=== PATIENT | female | born 1940 | race Caucasian/White ===

== ENCOUNTER 2016-07-22 10:33 | Day surgery (SDC) | payer MEDICARE, OTHER ==
[~2016-07-22] VITALS: Ht 157.5 cm; Wt 64.9 kg
--- NOTE | ~2016-07-22 | OR ---
PATIENT'S NAME: [facility] AGE: 76 Y [address] ROOM: [place] [id number] LOCATION: [facility] [place] ADMIT DATE: 07/22/2016 OR/Procedure Report DISCHARGE DATE: FAMILY PHYSICIAN: Fabiana Berumen APRN ATTENDING PHYSICIAN: Mamie Berg SURGEON: Mamie Berg MD STEWARD/STEWARDESS DECK: DATE OF PROCEDURE: 07/22/2016 PREOPERATIVE DIAGNOSIS: Stress urinary incontinence. POSTOPERATIVE DIAGNOSIS: Stress urinary incontinence. PROCEDURE PERFORMED: I-Stop sling. ANESTHESIA: General. COMPLICATIONS: None. ESTIMATED BLOOD LOSS: 50 mL. INDICATION FOR PROCEDURE: The patient is a 76-year-old female complaining of stress urinary incontinence. The patient is status post bladder suspension approximately 10 years ago. DESCRIPTION OF PROCEDURE: After informed consent was obtained, the patient was taken to the operating room. A general anesthetic was applied, and she was placed in dorsal lithotomy position. The lower abdomen and groin area were prepped and draped in the normal sterile fashion. A 20-Macedonian Madden catheter was placed. Two small skin incisions were made over the pubic bones bilaterally. Next, vasopressin was injected into the anterior vaginal wall to create an avascular plane. A T-incision was then made in the anterior vaginal wall along the course of the urethra to the bladder neck. I then developed a space into the endopelvic fascia bilaterally using sharp and blunt dissection. Next, the I-Stop needles were passed through the abdominal incision, through the endopelvic fascia, and out the anterior vaginal wall bilaterally. Cystoscopy was performed. This revealed that the needles had not penetrated the bladder and were away from the mucosa. The tape was attached to the end of each needle and pulled through. The mesh was placed at the bladder neck, and then I pulled out with the cystoscope and placed at a 45-degree angle, and the mesh was cut at the surface. The wounds were sealed with Steri-Strips. Following this, the Madden catheter was replaced. The anterior vaginal wall was closed with a running interlocking 2-0 Vicryl suture. The vagina was then packed with Silvadene-soaked gauze. The patient tolerated the procedure well and was transferred to the recovery room in good condition. PATIENT'S NAME: [facility] AGE: 76 Y [address] ROOM: [address] [address] LOCATION: [facility] [place] ADMIT DATE: 07/22/2016 OR/Procedure Report DISCHARGE DATE: FAMILY PHYSICIAN: Fabiana Berumen APRN ATTENDING PHYSICIAN: Mamie Berg MD JAD OLVERA/aichal /[id number] CC: Fabiana Berumen APRN d: 07/23/16 1503 t: 07/25/16 0951, OPERATIVE SUMMARY
[~2016-07-22 10:33] MED LIST: ASPIRIN EC81 MG PO; B COMPLEX1 EACH PO; FISH OIL 1,0001 EACH PO; LIPITOR80 MG PO; LOPRESSOR25 MG PO; PLAVIX75 MG PO; PRINIVIL (ZESTRI5 MG PO; VITAMIN D1000 UNIT PO
[2016-07-22 11:12] LABS: BASOPHIL # 0.1 K/uL (0.0-0.2); BASOPHIL % 0.7 %; EOSINOPHIL # 0.1 K/uL (0.0-0.5); EOSINOPHIL % 1.3 %; HEMATOCRIT 42.7 % (33.0-46.0); IMMATURE GRANULOCYTE % 0.3 %; LYMPHOCYTE # 1.9 K/uL (0.8-4.0); LYMPHOCYTE % 26.8 %; MCH 31.6 pg (27.0-34.0); MCHC 32.8 gm/dL (32.0-36.5); MCV 96.4 fl (83.0-98.0); MONOCYTE # 0.7 K/uL (0.0-1.0); MONOCYTE % 9.7 %; MPV 10.6 fl (9.4-12.4); NEUTROPHIL # (ANC) 4.4 K/uL (1.8-7.8); NEUTROPHIL % 61.2 %; NRBC % 0 /100WBC (0-0.00); PLATELET COUNT 279 K/uL (150-450); RBC 4.43 M/uL (3.50-5.50); RDW-CV 14.8 % (11.9-14.6); WBC 7.2 K/uL (4.0-11.0)
[2016-07-22 11:28] LABS: ALBUMIN 3.7 gm/dL (3.5-5.0); CALCIUM 8.9 mg/dL (8.5-10.5); TOTAL BILIRUBIN 0.4 mg/dL (0.0-1.5); TOTAL PROTEIN 7.4 g/dL (6.0-8.4)
[2016-07-23 09:49] LABS: BASOPHIL % 0.2 %; EOSINOPHIL % 0.4 %; HEMOGLOBIN 12.5 g/dL (10.0-15.0); IMMATURE GRANULOCYTE % 0.3 %; LYMPHOCYTE % 9.5 %; MCH 32.1 pg (27.0-34.0); MCHC 32.9 gm/dL (32.0-36.5); MCV 97.7 fl (83.0-98.0); MONOCYTE % 9.4 %; MPV 10.7 fl (9.4-12.4); NEUTROPHIL # (ANC) 8.4 K/uL (1.8-7.8); NEUTROPHIL % 80.2 %; NRBC % 0 /100WBC (0-0.00); PLATELET COUNT 219 K/uL (150-450); RBC 3.89 M/uL (3.50-5.50); RDW-CV 15.2 % (11.9-14.6); WBC 10.4 K/uL (4.0-11.0)
[2016-07-23] MEDS ORDERED: LEVAQUIN500 MG PO (15:25)
[2016-07-23] MEDS ORDERED: NORCO 10-325 T1 EACH PO (15:27)
== END 2016-07-23 16:06 | disposition disaster alternative care site (69) ==
LOC: GMSU 10:33 → GSDC 10:33 → GMSU 17:14 → GSDC 07-23 16:06
PROVIDERS: Urology
PROC: 0TSD0ZZ Reposition Urethra, Open Approach (ICD-10-PCS; principal; 2016-07-22)
DX: N39.3 Stress incontinence (female) (male) (principal); E78.5 Hyperlipidemia, unspecified; I10 Essential (primary) hypertension
CPT/HCPCS: J0690; J1956; J2001; J2405; J7120